=== PATIENT | male | born 1965 | race African-American/Black ===

== ENCOUNTER 2022-11-24 16:07 | Emergency (ER) | payer MEDICARE, MEDICAID ==
[~2022-11-24] VITALS: Ht 180.3 cm; Wt 95.0 kg
[2022-11-24 16:12] VITALS: O2SAT 100
[2022-11-24 17:00] LABS: CLARITY URINE CLOUDY (CLEAR); COLOR URINE YELLOW (YELLOW); GLUCOSE URINE NEGATIVE (NEGATIVE); KETONES URINE NEGATIVE (NEGATIVE); LEUKOCYTE ESTERASE URINE 1+ (NEGATIVE); NITRITE URINE POSITIVE (NEGATIVE); OCCULT BLOOD URINE 2+ (NEGATIVE); PROTEIN URINE NEGATIVE (NEGATIVE); SPECIFIC GRAVITY URINE 1.017 (1.005-1.030)
[2022-11-24 17:02] LABS: SQUAMOUS EPITHELIAL CELL URINE 3+ /lpf (RARE/1+); YEAST URINE NONE SEEN
[2022-11-24 17:26] LABS: BACTERIA URINE 3+
[2022-11-24] MEDS ORDERED: CEPH500T MT (17:46)
[2022-11-24 18:17] VITALS: BP 130/78; PULSE 71; RESP 16; TEMP 98.9
== END 2022-11-24 18:20 | disposition home or self-care (01) ==
LOC: ER 18:15
DX: N30.00 Acute cystitis without hematuria (principal); Z98.890 Other specified postprocedural states; Z20.822 Contact with and (suspected) exposure to COVID-19
CPT/HCPCS: 99283; 87426; 81003; C9803

== ENCOUNTER 2024-05-17 14:38 | Emergency (ER) | payer MEDICARE, MEDICAID ==
[~2024-05-17] VITALS: Ht 180.3 cm; Wt 95.0 kg
[~2024-05-17 14:38] MED LIST: CEPH500T MT
[2024-05-17 14:39] VITALS: BP 152/76; RESP 18; TEMP 37.1; O2SAT 99
[2024-05-17 14:43] VITALS: PULSE 91; O2SAT 100
[2024-05-17 15:38] LABS: CLARITY URINE CLOUDY (CLEAR); COLOR URINE YELLOW (YELLOW); GLUCOSE URINE NEGATIVE (NEGATIVE); KETONES URINE NEGATIVE (NEGATIVE); LEUKOCYTE ESTERASE URINE TRACE (NEGATIVE); NITRITE URINE POSITIVE (NEGATIVE); OCCULT BLOOD URINE 2+ (NEGATIVE); PROTEIN URINE TRACE (NEGATIVE); SPECIFIC GRAVITY URINE 1.036 (1.005-1.030)
[2024-05-17 16:06] LABS: CHLORIDE 109 mEq/L (98-107); POTASSIUM 3.6 mEq/L (3.5-5.1); SODIUM 141 mEq/L (136-145)
[2024-05-17 16:07] LABS: CARBON DIOXIDE 26 mEq/L (21-32)
[2024-05-17] MEDS ORDERED: CEFP200T13 MT (16:07)
[2024-05-17 16:08] LABS: CALCIUM 8.9 mg/dL (8.7-10.4)
[2024-05-17 16:12] LABS: CREATININE 0.9 mg/dL (0.6-1.3); GLUCOSE 90 mg/dL (70-105)
[2024-05-17 16:13] LABS: UREA NITROGEN BLOOD 11 mg/dL (9-23)
[2024-05-17 16:21] LABS: EOSINOPHILS % 3.6 % (0.0-5.0); HEMATOCRIT. 44.2 % (42.0-52.0); HEMOGLOBIN. 13.8 g/dL (14.0-18.0); LYMPHOCYTES % 44.8 % (20.0-50.0); MEAN CORPUSCULAR HEMOGLOBIN 28.8 pg (28.0-32.0); MEAN CORPUSCULAR HGB CONC 31.3 g/dL (31.0-37.0); MEAN CORPUSCULAR VOLUME 91.9 fL (80.0-94.0); MEAN PLATELET VOLUME 7.8 fl (7.4-10.4); MONOCYTES % 7.3 % (2.0-8.0); NEUTROPHILS % 43.3 % (40.0-76.0); PLATELET 224 x1000/uL (130-400); RED BLOOD CELL COUNT 4.81 mill/uL (4.7-6.1); RED CELL DISTRIBUTION WIDTH 13.1 % (11.6-14.6); WHITE BLOOD COUNT 5.3 x1000/uL (4.5-11.0)
[2024-05-17 16:47] LABS: BACTERIA URINE 3+; SQUAMOUS EPITHELIAL CELL URINE 2+ /lpf (RARE/1+)
== END 2024-05-17 17:00 | disposition home or self-care (01) ==
LOC: ER 14:38
DX: N39.0 Urinary tract infection, site not specified (principal); Z88.2 Allergy status to sulfonamides
CPT/HCPCS: 36415; 80048; 81003; 85025; 99283

== ENCOUNTER 2024-10-16 18:21 | Emergency (ER) | payer MEDICARE, MEDICAID ==
[~2024-10-16] VITALS: Ht 175.3 cm; Wt 77.0 kg
[~2024-10-16 18:21] MED LIST changes: +CEFP200T13 MT; +CIPR500S3 PO; +FOLI-43 PO
[2024-10-16 18:30] VITALS: TEMP 36.7; O2SAT 100; O2SAT 99
[2024-10-16] MEDS ORDERED: KETOROLAC 15MG/ML VIAL IM ONE (22:15)
[2024-10-16 23:24] VITALS: PULSE 94
[2024-10-16] MEDS: KETOROLAC 15MG/ML VIAL IM SCH (23:24)
[2024-10-16 23:25] VITALS: BP 138/92; RESP 18
[2024-10-16] MEDS: LIDOCAINE 5% PATCH TOP SCH (23:25)
[2024-10-17] MEDS ORDERED: LIDO-53 TP (00:33)
[2024-10-17] MEDS ORDERED: NAPR-1176 MT (00:33)
== END 2024-10-17 00:50 | disposition home or self-care (01) ==
LOC: ER 18:21
DX: M25.562 Pain in left knee (principal); M25.512 Pain in left shoulder; G82.20 Paraplegia, unspecified; Z79.1 Long term (current) use of non-steroidal anti-inflammatories (NSAID); Z88.2 Allergy status to sulfonamides; Z99.3 Dependence on wheelchair
CPT/HCPCS: 99284; 73030; 73562; 96372; J1885